=== PATIENT | male | born 1995 | race Caucasian/White ===

== ENCOUNTER → 2022-03-24 12:44 | Outpatient (CLI) | payer OTHER, SELFPAY ==
--- NOTE | 2022-03-24 12:55 | XR_ITS ---
FINAL REPORT CLINICAL HISTORY: RT KNEE PAIN FINDINGS: RIGHT KNEE Two views were obtained. There is no acute fracture or dislocation. No joint effusion is identified. The joint spaces appear normal. No soft tissue abnormality is identified. IMPRESSION: No acute process. Reviewed, Interpreted and Dictated by Phillip Kelly III, MD Transcribed by Sneha Diallo Authenticated by Phillip Kelly III, MD on 03/24/2022 02:51:57 PM [facility]
--- NOTE | 2022-03-24 12:55 | XR_ITS ---
FINAL REPORT CLINICAL HISTORY: LT KNEE PAIN FINDINGS: LEFT KNEE Two views were obtained. There is no acute fracture or dislocation. No joint effusion is identified. The joint spaces appear normal. No soft tissue abnormality is identified. IMPRESSION: No acute process. Reviewed, Interpreted and Dictated by Phillip Kelly III, MD Transcribed by Sneha Diallo Authenticated by Phillip Kelly III, MD on 03/24/2022 02:51:58 PM [facility]
== END ==
PROVIDERS: Visit Provider Nurse Practitioner Family
DX: M25.562 Pain in left knee (principal); M25.561 Pain in right knee; G89.29 Other chronic pain
CPT/HCPCS: 73562